=== PATIENT | female | born 1965 | race Caucasian/White ===

== ENCOUNTER 2019-05-16 16:43 | Emergency (ER) | payer OTHER, MEDICAID ==
[~2019-05-16] VITALS: Ht 170.2 cm; Wt 136.1 kg
[2019-05-16] MEDS ORDERED: CLONAZEPAM 0.50.5 M1 PO (17:00)
[2019-05-16] MEDS ORDERED: CARVEDILOL12.5 MG PO (17:00)
[2019-05-16] MEDS ORDERED: NEURONTIN 300300 M1 PO (17:00)
[2019-05-16] MEDS ORDERED: LAMICTAL5 MG PO (17:00)
[2019-05-16] MEDS ORDERED: LIPITOR10 MG PO (17:01)
[2019-05-16] MEDS ORDERED: PROTONIX 20 MG20 M1 PO (17:01)
[2019-05-16] MEDS ORDERED: NORVASC5 MG PO (17:01)
[2019-05-16] MEDS ORDERED: FLEXERIL PO (17:28)
[2019-05-16] MEDS ORDERED: PREDNISONE50 MG PO (17:28)
[2019-05-16] MEDS ORDERED: NORCO 5-325 TA1 EAC1 PO (17:28)
[2019-05-16 17:38] VITALS: BP 160/72
== END 2019-05-16 17:39 | disposition home or self-care (01) ==
LOC: M.ERS 16:43
DX: M54.5 Low back pain (principal); Z88.1 Allergy status to other antibiotic agents; Z88.0 Allergy status to penicillin; Z88.8 Allergy status to other drugs, medicaments and biological substances; Z98.51 Tubal ligation status; Z90.710 Acquired absence of both cervix and uterus; Z90.49 Acquired absence of other specified parts of digestive tract

== ENCOUNTER 2019-05-24 18:43 | Emergency (ER) | payer OTHER, MEDICAID ==
[~2019-05-24] VITALS: Ht 170.2 cm; Wt 149.7 kg
[~2019-05-24 18:43] MED LIST: CARVEDILOL12.5 MG PO; CLONAZEPAM 0.50.5 M1 PO; FLEXERIL PO; LAMOTRIGINE150 MG PO; LIPITOR10 MG PO; NEURONTIN 300300 M1 PO; NORCO 5-325 TA1 EAC1 PO; NORVASC5 MG PO; PREDNISONE50 MG PO; PROTONIX 20 MG20 M1 PO
[2019-05-24 19:31] LABS: URINE BILIRUBIN NEGATIVE (Negative); URINE BLOOD TRACE (Negative); URINE CLARITY CLEAR; URINE COLOR YELLOW; URINE GLUCOSE-RANDOM NEGATIVE (Negative); URINE KETONES NEGATIVE (Negative); URINE NITRITE-REFLEX NEGATIVE (Negative); URINE PROTEIN 1+ (Negative); URINE UROBILINOGEN 0.2 E.U./dl (0.2-1.0)
[2019-05-24 19:36] LABS: URINE LEUKOCYTES-REFLEX 3+ (Negative)
[2019-05-24 19:43] LABS: BACTERIA-REFLEX 1-9 Few /HPF (None Seen); SQUAMOUS >10 Many /LPF (0-3); URINE RBC 0-2 Rare /HPF (0-2); URINE WBC-REFLEX 6-15 Few /HPF (0-5)
[2019-05-24 19:44] LABS: CASTS None Seen /LPF (None Seen); CRYSTALS None Seen /LPF (None Seen)
[2019-05-24] MEDS ORDERED: ACETAMINOPHEN-1 EAC1 PO (20:09)
[2019-05-24] MEDS ORDERED: BACTRIM DS TAB1 EACH PO (20:10)
[2019-05-24] MEDS ORDERED: DIFLUCAN150 MG PO (20:10)
[2019-05-24 20:17] VITALS: BP 129/76
[2019-05-28] MEDS ORDERED: ROBAXIN500 MG PO (22:04)
[2019-06-02] MEDS ORDERED: GLUCOTROL5 MG PO (12:43)
[2019-06-02] MEDS ORDERED: GLUCOPHAGE XR500 MG PO (12:43)
[2019-06-02] MEDS ORDERED: CLONAZEPAM 0.50.5 M1 PO (13:48)
[2019-06-02] MEDS ORDERED: DIFLUCAN150 M1 PO (13:48)
[2019-06-02] MEDS ORDERED: NORVASC5 MG PO (13:48)
[2019-06-02] MEDS ORDERED: CARVEDILOL12.5 MG PO (13:48)
== END 2019-05-24 20:18 | disposition home or self-care (01) ==
LOC: M.ERS 18:43
PROVIDERS: Emergency Medicine
DX: N39.0 Urinary tract infection, site not specified (principal); M54.9 Dorsalgia, unspecified; Z90.49 Acquired absence of other specified parts of digestive tract; Z90.710 Acquired absence of both cervix and uterus; Z88.0 Allergy status to penicillin; Z88.1 Allergy status to other antibiotic agents; Z88.8 Allergy status to other drugs, medicaments and biological substances

== ENCOUNTER 2019-05-28 20:20 | Emergency (ER) | payer OTHER, MEDICAID ==
[~2019-05-28] VITALS: Ht 170.2 cm; Wt 136.1 kg
[~2019-05-28 20:20] MED LIST changes: +ACETAMINOPHEN-1 EAC1 PO; +BACTRIM DS TAB1 EACH PO; +DIFLUCAN150 MG PO
[2019-05-28 20:55] LABS: ABSOLUTE BASOPHILS 0.1 thou/uL (0.0-0.2); ABSOLUTE EOSINOPHILS 0.4 thou/uL (0.0-0.7); ABSOLUTE LYMPHOCYTES 2.1 thou/uL (0.8-5.3); ABSOLUTE MONOCYTES 0.5 thou/uL (0.0-1.2); ABSOLUTE NEUTROPHILS 4.1 thou/uL (1.6-8.1); BASOPHILS 0.9 %; HEMATOCRIT 41.3 % (37.0-47.0); HEMOGLOBIN 13.4 gm/dL (12.0-15.0); LYMPHOCYTES 29.1 %; MCH 28.4 pg (26.0-34.0); MCHC 32.5 g/dL (28.0-37.0); MCV 87.4 fL (80.0-100.0); MPV 7.7 fl. (7.2-11.1); NUCLEATED RBCS 0 /100WBC; PLATELET COUNT* 394 thou/uL (150-400); RBC 4.73 mil/uL (4.20-5.00); RDW-CV 14.2 % (10.5-14.5); WBC 7.3 thou/uL (4.0-11.0)
[2019-05-28 21:00] LABS: URINE CLARITY CLEAR; URINE COLOR YELLOW
[2019-05-28 21:01] LABS: URINE BILIRUBIN NEGATIVE (Negative); URINE BLOOD TRACE (Negative); URINE GLUCOSE-RANDOM NEGATIVE (Negative); URINE KETONES NEGATIVE (Negative); URINE LEUKOCYTES-REFLEX 1+ (Negative); URINE NITRITE-REFLEX NEGATIVE (Negative); URINE PROTEIN 2+ (Negative); URINE SPECIFIC GRAVITY >= 1.030 (1.005-1.030); URINE UROBILINOGEN 0.2 E.U./dl (0.2-1.0)
[2019-05-28 21:08] LABS: CREATININE 1.6 mg/dL (0.6-1.3)
[2019-05-28 21:12] LABS: ALBUMIN 3.3 g/dL (3.4-5.0); TOTAL BILIRUBIN 0.2 mg/dL (<0.1-1.0); TOTAL PROTEIN 7.2 g/dL (6.4-8.2)
[2019-05-28 21:34] LABS: SQUAMOUS >10 Many /LPF (0-3)
[2019-05-28 21:35] LABS: CRYSTALS None Seen /LPF (None Seen); MUCUS None Seen strn/LPF (None Seen); URINE RBC 0-2 Rare /HPF (0-2)
[2019-05-28 21:36] LABS: BACTERIA-REFLEX 1-9 Few /HPF (None Seen); HYALINE CASTS 0-3 Few /LPF (None Seen)
[2019-05-28] MEDS ORDERED: ROBAXIN500 MG PO ×2 (22:04)
[2019-05-28 22:33] VITALS: BP 155/79
== END 2019-05-28 22:34 | disposition home or self-care (01) ==
LOC: M.ERS 20:20
PROVIDERS: Nurse Practitioner Family
DX: N39.0 Urinary tract infection, site not specified (principal); G89.29 Other chronic pain; M54.5 Low back pain; Z90.49 Acquired absence of other specified parts of digestive tract; Z90.710 Acquired absence of both cervix and uterus; Z88.0 Allergy status to penicillin; Z88.1 Allergy status to other antibiotic agents; Z88.8 Allergy status to other drugs, medicaments and biological substances

== ENCOUNTER 2019-05-31 13:56 | Inpatient (IN) | payer OTHER, MEDICAID ==
[~2019-05-31] VITALS: Ht 170.2 cm; Wt 148.8 kg
--- NOTE | ~2019-05-31 | CON ---
[address] [address] CONSULTATION Name: RODY CHANDRA Room: [address] IN [facility]#: [id number] Admission: 05/31/19 Attend Phys: George Huddleston Discharge: Date of : 67 Report #: [id number] THIS REPORT FOR: //name// CC: MAXIMILIANO physician/PCP Khai Zimmer DATE OF SERVICE: 06/01/2019 CARDIOLOGY CONSULTATION HISTORY OF PRESENT ILLNESS: The patient is a 54-year-old female with a history of hypertension, hypercholesterolemia and reported prior myocardial infarction without intervention performed. For the last several days, she has noted dyspnea. Yesterday, she described left parasternal chest discomfort, which was different from prior ischemic pain. It is completely remitted today. The patient had an unremarkable EKG and cardiac enzymes on initial evaluation and she is pain free at the present time. Again, the discomfort described yesterday was different from that associated with prior ischemic episodes by her description. As noted above, there are number of risk factors for coronary artery disease include prior cigarette smoking, hypercholesterolemia, mild type 2 diabetes, hypertension and family history of premature coronary artery disease. SOCIAL HISTORY: Remarkable for prior cigarette smoking. She does function independently. FAMILY HISTORY: Remarkable for coronary artery disease in her grandfather. MEDICATIONS: Have included amlodipine, atorvastatin, carvedilol, clonazepam, doxepin, gabapentin, lamotrigine and pantoprazole. REVIEW OF SYSTEMS: Remarkable for the following positives. RESPIRATORY: She has noted cough with prior pneumonia and dyspnea on presentation. CARDIOVASCULAR: She describes atypical chest discomfort yesterday, different from prior ischemic pain. ENDOCRINE: She notes mild type 2 diabetes. GASTROINTESTINAL: She has a history of peptic ulcer disease. HEMATOLOGIC AND LYMPHATIC: She notes a history of prior bleeding. ALLERGIC AND IMMUNOLOGIC: She notes seasonal allergies. PSYCHIATRIC: She notes a history of depression and chronic anxiety, latter being particularly operative yesterday. MUSCULOSKELETAL: She notes mild chronic arthritic complaints. EYES: She wears glasses. Remainder [place] [address] CONSULTATION Name: RODY CHANDRA Room: [address]#: [id number] Admission: 05/31/19 Attend Phys: George Huddleston Discharge: Date of : 67 Report #: [id number] PHYSICAL EXAMINATION: GENERAL: Reveals an overweight, middle-aged female in no acute distress. VITAL SIGNS: Blood pressure 130/70, pulse rate 74, respirations 18 per minute. NECK: Jugular venous pressure is normal with carotids being 1+ to 2+. CHEST: Clear. CARDIAC: Reveals normal first and second heart sounds without rubs, murmurs or gallops. ABDOMEN: Obese and nontender. EXTREMITIES: Without edema with intact femoral, pedal and radial pulses. There are no deformity or arthritic changes. No petechiae or ecchymosis are noted. LABORATORY DATA: Electrocardiogram reveals sinus rhythm with minor nonspecific ST-T alterations. LABORATORY DATA: Remarkable for hemoglobin of 13.0, white blood cell count of 6400 with 345,000 platelets. Sodium 141, potassium 3.8, BUN 11, creatinine 1.6, troponin I less than 0.06. NT-BNP 778. Chest x-ray is reviewed and it demonstrates normal heart size without evidence for congestive heart failure. IMPRESSION: 1. Atypical chest pain. 2. Dyspnea on exertion with normal chest radiograph. 3. Hypertension. 4. Hypercholesterolemia. 5. History of mild type 2 diabetes. 6. Exogenous obesity. RECOMMENDATIONS: Given the atypical characterization of the pain and lack of enzymatic or electrocardiographic abnormalities, I would recommend continued conservative approach with focus on blood pressure and cholesterol. I would recommend proceed with an echocardiogram in a.m. to address the presence or absence of structural heart disease as the patient describes 3 prior myocardial infarctions, though the EKG demonstrates no evidence for prior infarct. Thank you for allowing us to see the patient in cardiovascular assessment. By: [id number] De Guzman MD, FACC /nt
[~2019-05-31 13:56] MED LIST changes: +ROBAXIN500 MG PO
[2019-05-31 13:58] VITALS: BP 131/81
[2019-05-31 14:16] LABS: ABSOLUTE BASOPHILS 0.1 thou/uL (0.0-0.2); ABSOLUTE EOSINOPHILS 0.3 thou/uL (0.0-0.7); ABSOLUTE MONOCYTES 0.6 thou/uL (0.0-1.2); ABSOLUTE NEUTROPHILS 3.5 thou/uL (1.6-8.1); HEMATOCRIT 39.6 % (37.0-47.0); LYMPHOCYTES 30.6 %; MCH 28.5 pg (26.0-34.0); MCHC 32.9 g/dL (28.0-37.0); MCV 86.6 fL (80.0-100.0); MONOCYTES 8.8 %; MPV 7.1 fl. (7.2-11.1); NUCLEATED RBCS 0 /100WBC; PLATELET COUNT* 345 thou/uL (150-400); POLYS 54.6 %; RBC 4.58 mil/uL (4.20-5.00); RDW-CV 14.2 % (10.5-14.5); WBC 6.4 thou/uL (4.0-11.0)
[2019-05-31 14:27] LABS: ANION GAP 6 mmol/L (7-16); BUN 11 mg/dL (7-18); CALCIUM 9.3 mg/dL (8.5-10.1); CHLORIDE 103 mmol/L (98-107); CO2 32 mmol/L (21-32); CREATININE 1.6 mg/dL (0.6-1.3); GLUCOSE 150 mg/dL (70-99); POTASSIUM 3.8 mmol/L (3.5-5.1); SODIUM 141 mmol/L (136-145)
[2019-05-31 14:29] LABS: APTT 24.5 Seconds (25.0-31.3)
[2019-05-31 14:39] LABS: ALBUMIN 3.2 g/dL (3.4-5.0); ALKALINE PHOSPHATASE 138 U/L (46-116); CK-MB MASS 0.7 ng/mL (<0.5-3.6); LIPASE 63 U/L (73-393); MAGNESIUM 1.7 mg/dL (1.8-2.4); NT-PRO BRAIN NAT PEPTIDE 778 pg/mL (<300); SGOT 16 U/L (15-37); SGPT 22 U/L (30-65); TOTAL BILIRUBIN 0.3 mg/dL (<0.1-1.0); TOTAL PROTEIN 6.9 g/dL (6.4-8.2); TROPONIN-I LEVEL <0.06 ng/mL (<0.06)
[2019-05-31 15:26] LABS: BE 2.6 mmol/L (-2 to +3); PCO2 49.3 mmHg (35.0-45.0); PO2 65.3 mmHg (75.0-100.0); pH 7.381 (7.340-7.450)
[2019-05-31 16:05] VITALS: BP 154/89
[2019-05-31 16:34] VITALS: BP 156/84
--- NOTE | 2019-05-31 16:47 | NUR ---
RECEIEVED REPORT FROM PARVEEN RN IN ER AT 1600 OF EXPECTED ADMISSION- DX: DYSPNEA, CHF EXACERBATION, HYPOXEMIA, CHEST PAIN- PT ARRIVED TO ROOM 230 VIA CART AT 1610, SBA TO BED WITH TRANSFER- MANAGER DRIVE PLACED ORDERED, TRACING SR- PT A&O X4- CONTINENT OF B/B- UP AD-EZ IN ROOM, STEADY GAIT NOTED- VS 97.8 20 156/84 94 94% ON 3L VIA NC- LCTA, DIMINISHED IN BASES; DYSPNEA NOTED ON EXERTION-REPORTED NON-PRODUCTIVE COUGH- ABD SOFT/OBESE/NON-TENDER, BS X4 QUADS- REPORTED LAST BM 05/30/19- IV NOTED TO LEFT AC INTACT AND SL-CARDIO CONSULTED ORDERED R/T CHEST PAIN- PT REPORTS CHEST/BACK PAIN 06/21- SKIN C/D/I- GLASSES NOTED INTACT- REPORTED TO NOT HAVE TEETH NOR DENTURES-PT ORIENTED TO ROOM- CALL LIGHT AND PERSONAL BELONGINGS WITH IN REACH- PT MAKES NEEDS KNOWN- ALL NEEDS MET AT THIS TIME-WCTM
[2019-05-31 20:00] VITALS: BP 142/66
[2019-05-31] MEDS ORDERED: DOXEPIN HCL100 MG PO (21:39)
[2019-06-01 00:41] VITALS: BP 133/76
[2019-06-01 04:00] VITALS: BP 116/61
[2019-06-01 07:00] VITALS: BP 132/67
--- NOTE | 2019-06-01 07:08 | NUR ---
ASSUMED PT CARE AT 1930. ASSESSMENT COMPLETED CHARTED. ABLE TO MAKE NEEDS KNOWN. C/O GENERALIZED ACHING AND GAVE PRN PAIN MEDICATION. UP AD EZ IN ROOM WITH O2 ON. PT SLEPT ON AND OFF ALL NIGHT. C/O ANXIETY YET SHE IS ON SCHEDULED ANXIETY MEDS. WILL CONTINUE TO MONITOR.
[2019-06-01 12:25] VITALS: BP 100/54
--- NOTE | 2019-06-01 17:24 | NUR ---
PATIENT INFORMED RN SHE WAS DIAGNOSED WITH DIABETES IN MARCH AT [facility]. PATIENT REPORTED WHILE IN THE HOSPITAL SHE WAS ON INSULIN AND THEN DISCHARGED ON METFORMIN WITH INSTRUCTIONS TO FOLLOW-UP WITH HER PCP. PATIENT REPORTS HER APPOINTMENT IS NOT UNTIL THE END OF JUNE. PATIENT HAS BEEN ON A REGULAR DIET WHILE IN HOSPITAL AND IS RECEIVING STEROIDS - BLOOD SUGAR IS HIGH. RN PAGED DR. BERUMEN AND SPOKE TO HIM. RN RECEIVED NEW MEDICATION ORDERS AND CHANGED DIET TO DIABETIC/CARB CONTROL.
[2019-06-01 20:00] VITALS: BP 123/66
[2019-06-02] VITALS: BP 112/56
[2019-06-02 04:00] VITALS: BP 118/61
[2019-06-02 07:15] VITALS: BP 111/64
--- NOTE | 2019-06-02 07:32 | NUR ---
ASSUMED PT CARE AT 1930. ASSESSMENT COMPLETED CHARTED. ABLE TO MAKE NEEDS KNOWN. UP AD EZ, NO C/O PAIN MOST OF THE NIGHT EXCEPT FOR THIS MORNING HAVING BACK PAIN AND GAVE PRN PAIN MEDICATIONS. PT RESTING IN BED AT THIS TIME. WILL CONTINUE TO MONITOR.
--- NOTE | 2019-06-02 07:57 | NUR ---
INITAL ASSESSMENT COMPLETED CHARTED. VSS. PT DENIES PAIN AT THIS TIME.TRACING SR ON MONITOR. PT DENIES CP, N/V/D, SOA. HOURLY ROUNDING IN PLACE FOR PT SAFETY. CLWR.
[2019-06-02 12:11] VITALS: BP 104/56
[2019-06-02] MEDS ORDERED: GLUCOPHAGE XR500 MG PO ×2 (12:43)
[2019-06-02] MEDS ORDERED: GLUCOTROL5 MG PO ×2 (12:43)
[2019-06-02 13:41] LABS: URINE BILIRUBIN NEGATIVE (Negative); URINE BLOOD NEGATIVE (Negative); URINE CLARITY CLEAR; URINE COLOR YELLOW; URINE GLUCOSE-RANDOM NEGATIVE (Negative); URINE KETONES NEGATIVE (Negative); URINE LEUKOCYTES-REFLEX NEGATIVE (Negative); URINE NITRITE-REFLEX NEGATIVE (Negative); URINE PROTEIN TRACE (Negative); URINE SPECIFIC GRAVITY 1.015 (1.005-1.030); URINE UROBILINOGEN 0.2 E.U./dl (0.2-1.0)
[2019-06-02] MEDS ORDERED: DIFLUCAN150 M1 PO ×2 (13:48)
[2019-06-02] MEDS ORDERED: NORVASC5 MG PO ×2 (13:48)
[2019-06-02] MEDS ORDERED: CLONAZEPAM 0.50.5 M1 PO ×2 (13:48)
[2019-06-02] MEDS ORDERED: CARVEDILOL12.5 MG PO ×2 (13:48)
--- NOTE | 2019-06-02 13:57 | NUR ---
MET WITH PT AND HER DTR/NEREIDA TO DISCUSS HOME SITUATION/DC PLANNING. PT STATES SHE IS LIVING WITH HER DTR AND BERT IN [facility] IN [place] (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 PT IS INDEPENDENT, USES NO EQUIPMENT. SHE IS [place] BUT [place] AND STATES SHE HAS TO GO TO PHARMACY [place] GET MEDS FILL[place] FOR FREE. DTR STATED THEIR CAR ISN'T RUNNING BUT THEY ARE 'WORKING ON IT.' PT REPORTS SHE HAS HOME MEDS BUT WORRIED IF GETS NEW SCRIPTS HOW THEY WILL GET THEM FILLED. WILL FOLLOW
--- NOTE | 2019-06-02 14:00 | NUR ---
Nutrition: Consult received for "OBE." Pt admitted with dyspnea, CHF exac. Wt: 328#. DM DX in April 2019. BG 300s, steroids just d/c'd. Alb 3.2, BUN 11, cr 1.6. CHO controlled diet. Pt declined DM or nutrition educ today. She stated she has a stck of papers they gave her at DX in [place] in April. She stated that she is living in a hotel right now and doesn't know if she'll end up back in [place] or [place]. Encouraged her to call her insurance and go to [facility] once she is more on her feet. She stated she would - RD doubtful. Denied any questions/concerns today. Consider Mild risk. Recommend outpatient counseling and SW resources.
[2019-06-02 14:13] VITALS: BP 104/56
--- NOTE | 2019-06-03 16:04 | 2DMMODE ---
[place] [address] 2 D/M-MODE ECHOCARDIOGRAM Name: RODY CHANDRA Room: [address]#: [id number] Admission: 05/31/19 Attend Phys: Khai Zimmer Discharge: 06/02/19 Date of : 67 Date of Service: 06/03/19 1603 Report #: [id number] THIS REPORT FOR: //name// APPROVED REPORT Study performed: 06/02/2019 10:56:28 EXAM: Comprehensive 2D, Doppler, and color-flow Echocardiogram Patient Location: In-Patient Room #: 230 BSA: 2.15 HR: 82 bpm BP: 111/64 mmHg Other Information Study Quality: Good Indications Congestive Heart Failure 2D Dimensions IVSd: 13.32 (7-11mm) LVOT Diam: 20.88 (18-24mm) LVDd: 47.97 mm PWd: 11.31 (7-11mm) Ascending Ao: 33.55 (22-36mm) LVDs: 31.96 (25-40mm) Aortic Root: 31.40 mm Volumes Left Atrial Volume (Systole) LA ESV Index: 19.90 mL/m2 Aortic Valve AoV Peak Angel.: 1.82 m/s AO Peak Gr.: 13.27 mmHg LVOT Max P.30 mmHg AO Mean Gr.: 7.03 mmHg LVOT Mean P.69 mmHg LVOT Max V: 0.91 m/s AO V2 VTI: 33.82 cm LVOT Mean V: 0.59 m/s PAUL (VTI): 1.97 cm2 LVOT V1 VTI: 19.48 cm Mitral Valve E/A Ratio: 0.76 MV Decel. Time: 323.22 ms MV E Max Angel.: 0.86 m/s MV PHT: 93.73 [place] [address] 2 D/M-MODE ECHOCARDIOGRAM Name: RODY CHANDRA Room: [address]#: [id number] Admission: 05/31/19 Attend Phys: Khai Zimmer Discharge: 06/02/19 Date of : 67 Date of Service: 06/03/19 1603 Report #: [id number] MVA (PHT): 2.35 cm2 TDI E/Lateral E': 10.75 E/Medial E': 14.33 Medial E' Angel.: 0.06 m/s Lateral E' Angel.: 0.08 m/s Pulmonary Valve PV Peak Angel.: 1.23 m/s PV Peak Gr.: 6.07 mmHg Left Ventricle The left ventricle is normal size. There is normal LV segmental wall motion. There is normal left ventricular wall thickness. Left ventricular systolic function is normal. LVEF is 55-60%. Grade I - abnormal relaxation pattern. Right Ventricle The right ventricle is normal size. The right ventricular systolic function is normal. Atria The left atrium size is normal. The right atrium size is normal. Aortic Valve The aortic valve is normal in structure. Mild aortic regurgitation. There is no aortic valvular stenosis. Mitral Valve The mitral valve is normal in structure. There is no mitral valve regurgitation noted. No evidence of mitral valve stenosis. Tricuspid Valve The tricuspid valve is normal in structure. There is no tricuspid valve regurgitation noted. Pulmonic Valve The pulmonary valve is normal in structure. There is no pulmonic valvular regurgitation. Great Vessels The aortic root is normal in size. IVC is normal in size and collapses >50% with inspiration. Pericardium There is no pericardial [place] [address] 2 D/M-MODE ECHOCARDIOGRAM Name: RODY CHANDRA Room: [address]#: [id number] Admission: 05/31/19 Attend Phys: Khai Zimmer Discharge: 06/02/19 Date of : 67 Date of Service: 06/03/19 1603 Report #: [id number] <Conclusion> The left ventricle is normal size. There is normal left ventricular wall thickness. Left ventricular systolic function is normal. LVEF is 55-60%. Grade I - abnormal relaxation pattern. Mild aortic regurgitation. IVC is normal in size and collapses >50% with inspiration. <ELECTRONICALLY SIGNED> By: Artem Null MD, FACC 06/03/19 1603 1603 1603 Artem Null MD, FACC /INF
== END 2019-06-02 14:55 | disposition home or self-care (01) | DRG 291 ==
LOC: M.ERS 13:56 → M.TBA-ER 15:24 → M.2W 15:24
PROVIDERS: Family Medicine; ADMIT Internal Medicine
DX: I11.0 Hypertensive heart disease with heart failure (principal); J96.20 Acute and chronic respiratory failure, unspecified whether with hypoxia or hypercapnia; N39.0 Urinary tract infection, site not specified; Z68.43 Body mass index [BMI] 50.0-59.9, adult; I50.43 Acute on chronic combined systolic (congestive) and diastolic (congestive) heart failure; E78.00 Pure hypercholesterolemia, unspecified; E11.9 Type 2 diabetes mellitus without complications; G89.29 Other chronic pain; E78.5 Hyperlipidemia, unspecified; K21.9 Gastro-esophageal reflux disease without esophagitis; E66.09 Other obesity due to excess calories; B37.3 Candidiasis of vulva and vagina; M54.9 Dorsalgia, unspecified; F41.9 Anxiety disorder, unspecified; Z88.1 Allergy status to other antibiotic agents; Z88.0 Allergy status to penicillin; Z88.8 Allergy status to other drugs, medicaments and biological substances; Z79.899 Other long term (current) drug therapy; Z90.710 Acquired absence of both cervix and uterus; Z90.49 Acquired absence of other specified parts of digestive tract; Z87.891 Personal history of nicotine dependence; I25.2 Old myocardial infarction; Z82.49 Family history of ischemic heart disease and other diseases of the circulatory system

== ENCOUNTER 2020-04-17 11:53 | Emergency (ER) | payer OTHER, MEDICAID ==
[~2020-04-17] VITALS: Ht 170.2 cm; Wt 123.4 kg
[~2020-04-17 11:53] MED LIST changes: +DIFLUCAN150 M1 PO; +DOXEPIN HCL100 MG PO; +GLUCOPHAGE XR500 MG PO; +GLUCOTROL5 MG PO
[2020-04-17] MEDS ORDERED: FAMOTIDINE 10 M10 MG PO (12:13)
[2020-04-17] MEDS ORDERED: ZPAK PO (12:36)
[2020-04-17 13:10] VITALS: BP 114/72
[2020-04-17] MEDS ORDERED: LIDOCAINE VISC100 ML SW&SWALLOW ×2 (13:12)
== END 2020-04-17 13:12 | disposition home or self-care (01) ==
LOC: M.ERS 11:53
DX: J98.8 Other specified respiratory disorders (principal); B33.8 Other specified viral diseases; J02.9 Acute pharyngitis, unspecified; I50.9 Heart failure, unspecified; F31.9 Bipolar disorder, unspecified; F41.9 Anxiety disorder, unspecified; Z90.710 Acquired absence of both cervix and uterus

== ENCOUNTER 2020-06-22 18:10 | Emergency (ER) | payer OTHER, MEDICAID ==
[~2020-06-22] VITALS: Ht 170.2 cm; Wt 127.0 kg
[~2020-06-22 18:10] MED LIST changes: +FAMOTIDINE 10 M10 MG PO; +LIDOCAINE VISC100 ML SW&SWALLOW; +ZPAK PO
[2020-06-22 18:29] LABS: URINE BILIRUBIN NEGATIVE (Negative); URINE BLOOD NEGATIVE (Negative); URINE CLARITY CLEAR; URINE COLOR YELLOW; URINE GLUCOSE-RANDOM NEGATIVE (Negative); URINE KETONES NEGATIVE (Negative); URINE LEUKOCYTES-REFLEX 1+ (Negative); URINE NITRITE-REFLEX NEGATIVE (Negative); URINE PROTEIN 1+ (Negative); URINE UROBILINOGEN 0.2 E.U./dl (0.2-1.0)
[2020-06-22 18:31] LABS: ABSOLUTE BASOPHILS 0.1 thou/uL (0.0-0.2); ABSOLUTE EOSINOPHILS 0.3 thou/uL (0.0-0.7); ABSOLUTE MONOCYTES 0.5 thou/uL (0.0-1.2); ABSOLUTE NEUTROPHILS 5.5 thou/uL (1.6-8.1); BASOPHILS 0.9 %; EOSINOPHILS 3.7 %; HEMATOCRIT 35.7 % (37.0-47.0); HEMOGLOBIN 11.8 gm/dL (12.0-15.0); LYMPHOCYTES 23.8 %; MCH 29.1 pg (26.0-34.0); MCV 88.1 fL (80.0-100.0); MONOCYTES 5.5 %; MPV 6.9 fl. (7.2-11.1); NUCLEATED RBCS 0 /100WBC; PLATELET COUNT* 353 thou/uL (150-400); POLYS 66.1 %; RBC 4.05 mil/uL (4.20-5.00); RDW-CV 15.8 % (10.5-14.5); WBC 8.3 thou/uL (4.0-11.0)
[2020-06-22 18:39] LABS: CREATININE 1.5 mg/dL (0.6-1.3); POTASSIUM 4.5 mmol/L (3.5-5.1)
[2020-06-22 18:40] LABS: SQUAMOUS 4-10 Moderate /LPF (0-3); URINE RBC 0-2 Rare /HPF (0-2); URINE WBC-REFLEX 0-5 Rare /HPF (0-5)
[2020-06-22 18:41] LABS: BACTERIA-REFLEX 1-9 Few /HPF (None Seen); CASTS None Seen /LPF (None Seen); CRYSTALS None Seen /LPF (None Seen)
[2020-06-22 18:45] LABS: ALBUMIN 3.5 g/dL (3.4-5.0); TOTAL BILIRUBIN 0.2 mg/dL (<0.1-1.0); TOTAL PROTEIN 7.4 g/dL (6.4-8.2)
[2020-06-22] MEDS ORDERED: FLAGYL500 M1 PO (20:26)
[2020-06-22] MEDS ORDERED: ONDANSETRON HCL4 M2 PO (20:26)
[2020-06-22] MEDS ORDERED: BENTYL 20 MG TA20 M1 PO (20:26)
[2020-06-22 20:46] VITALS: BP 137/70
--- NOTE | 2020-06-23 10:26 | EKG ---
[place] [address] ELECTROCARDIOGRAM REPORT Name: RODY CHANDRA Room: [facility]#: [id number] Admission: 06/22/20 Attend Phys: Discharge: 06/22/20 Date of : 67 Date of Service: 06/22/201820 Report #: [id number] THIS REPORT FOR: //name// [facility] ED Test Date: 2020-06-22 Test Time: 18:21:02 Pat Name: RODY CHANDRA Department: Room: Gender: F Bobbin Sorter: [facility] : 1965 Requested By: Linda Mcguire Order Number: [id number] MD: Sridhar Vaca Measurements Intervals [place] Rate: 73 P: 61 DC: 193 QRS: 56 QRSD: 110 T: 52 QT: 407 QTc: 449 Interpretive Statements Sinus rhythm No previous ECG available for comparison Electronically Signed On 06-23-2020 10:26:33 CDT by Sridhar Vaca [email or web address] <ELECTRONICALLY SIGNED> By: Sridhar Vaca MD, [facility] 06/23/20 1026 20 20 Sridhar Vaca MD, FACC /EPI
== END 2020-06-22 20:47 | disposition home or self-care (01) ==
LOC: M.ERS 18:10
PROVIDERS: Nurse Practitioner Family
DX: R10.33 Periumbilical pain (principal); I50.9 Heart failure, unspecified; Z88.1 Allergy status to other antibiotic agents; Z88.0 Allergy status to penicillin; Z88.8 Allergy status to other drugs, medicaments and biological substances; Z98.51 Tubal ligation status; Z90.710 Acquired absence of both cervix and uterus; Z90.49 Acquired absence of other specified parts of digestive tract

== ENCOUNTER 2020-06-29 13:07 | Emergency (ER) | payer OTHER, MEDICAID ==
[~2020-06-29] VITALS: Ht 170.2 cm; Wt 127.0 kg
[~2020-06-29 13:07] MED LIST changes: +BENTYL 20 MG TA20 M1 PO; +FLAGYL500 M1 PO; +ONDANSETRON HCL4 M2 PO
[2020-06-29] MEDS ORDERED: IBUPROFEN 800800 M1 PO (15:25)
[2020-06-29] MEDS ORDERED: NORCO 5-325 TA1 EAC2 PO (15:25)
[2020-06-29 15:36] VITALS: BP 167/74
== END 2020-06-29 15:36 | disposition home or self-care (01) ==
LOC: M.ERS 13:07
DX: M17.12 Unilateral primary osteoarthritis, left knee (principal); I50.9 Heart failure, unspecified; F31.9 Bipolar disorder, unspecified; F41.9 Anxiety disorder, unspecified; Z98.51 Tubal ligation status; Z90.710 Acquired absence of both cervix and uterus; Z90.49 Acquired absence of other specified parts of digestive tract; Z88.0 Allergy status to penicillin; Z88.1 Allergy status to other antibiotic agents

== ENCOUNTER → 2020-08-18 | Outpatient (CLI) | payer OTHER, MEDICAID ==
[~2020-08-18] MED LIST changes: +AMBIEN 10 MG TA10 MG PO; +CELEXA 20 MG TA20 MG PO; +ELIQUIS5 MG PO; +HYDROXYZINE HCL25 M2 PO; +IBUPROFEN 800800 M1 PO; +LAMICTAL XR200 MG PO; +LEVOFLOXACIN500 MG PO; +LINEZOLID600 MG PO; +MIRAPEX0.5 MG PO; +NEURONTIN600 MG PO; +NORCO 5-325 TA1 EAC2 PO; +NORVASC5 M1 PO; +OMEPRAZOLE40 MG PO; +OXYCODONE HCL 55 MG PO; +SINGULAIR 10 MG10 M1 PO
[2020-08-18 14:32] LABS: ABSOLUTE BASOPHILS 0.1 thou/uL (0.0-0.2); ABSOLUTE EOSINOPHILS 0.3 thou/uL (0.0-0.7); ABSOLUTE LYMPHOCYTES 1.7 thou/uL (0.8-5.3); ABSOLUTE MONOCYTES 0.3 thou/uL (0.0-1.2); ABSOLUTE NEUTROPHILS 4.2 thou/uL (1.6-8.1); BASOPHILS 0.8 %; EOSINOPHILS 5.1 %; HEMATOCRIT 38.2 % (37.0-47.0); HEMOGLOBIN 12.5 gm/dL (12.0-15.0); LYMPHOCYTES 26.2 %; MCH 28.2 pg (26.0-34.0); MCHC 32.7 g/dL (28.0-37.0); MCV 86.2 fL (80.0-100.0); MONOCYTES 5.2 %; MPV 6.6 fl. (7.2-11.1); NUCLEATED RBCS 0 /100WBC; PLATELET COUNT* 315 thou/uL (150-400); POLYS 62.7 %; RBC 4.43 mil/uL (4.20-5.00); RDW-CV 15.6 % (10.5-14.5); WBC 6.6 thou/uL (4.0-11.0)
[2020-08-18 14:43] LABS: ALBUMIN 3.5 g/dL (3.4-5.0); CALCIUM 9.8 mg/dL (8.5-10.1); CREATININE 1.8 mg/dL (0.6-1.3); POTASSIUM 4.8 mmol/L (3.5-5.1); TOTAL BILIRUBIN 0.3 mg/dL (<0.1-1.0); TOTAL PROTEIN 7.3 g/dL (6.4-8.2)
[2020-08-18 15:54] LABS: ESR (SEDRATE) 20 mm/hr (0-30)
[2020-08-19 02:06] LABS: GLYCOHEMOGLOBIN (HGB A1C) 5.8 % (4.8-5.6)
== END ==
LOC: M.LAB 08-17 07:39
PROVIDERS: ATTEND Orthopaedic Surgery
DX: Z01.812 Encounter for preprocedural laboratory examination (principal); Z20.828 Contact with and (suspected) exposure to other viral communicable diseases; M17.11 Unilateral primary osteoarthritis, right knee

== ENCOUNTER 2020-08-24 12:16 | Inpatient (IN) | payer OTHER, MEDICAID ==
[~2020-08-24] VITALS: Ht 170.2 cm; Wt 127.0 kg
[~2020-08-24 12:16] MED LIST changes: -ELIQUIS5 MG PO; -LEVOFLOXACIN500 MG PO; -LINEZOLID600 MG PO; -OXYCODONE HCL 55 MG PO
[2020-08-24 13:00] VITALS: BP 145/77
[2020-08-24 21:21] VITALS: BP 101/58
[2020-08-25] VITALS: BP 111/65
[2020-08-25 04:05] VITALS: BP 123/70
[2020-08-25 04:52] LABS: HEMATOCRIT 34.8 % (37.0-47.0); HEMOGLOBIN 11.2 gm/dL (12.0-15.0)
[2020-08-25 08:10] VITALS: BP 122/87
[2020-08-25] MEDS ORDERED: ELIQUIS5 MG PO (08:57)
[2020-08-25] MEDS ORDERED: OXYCODONE HCL 55 MG PO (08:57)
[2020-08-25 11:38] VITALS: BP 122/87
[2020-08-25 12:37] VITALS: BP 110/59
[2020-08-25 14:39] LABS: CALCIUM 8.6 mg/dL (8.5-10.1); CREATININE 1.8 mg/dL (0.6-1.3); MAGNESIUM 1.9 mg/dL (1.8-2.4); POTASSIUM 4.8 mmol/L (3.5-5.1)
[2020-08-25 14:50] LABS: BE 1.3 mmol/L (-2 to +3); PO2 60.4 mmHg (75.0-100.0); pH 7.307 (7.340-7.450)
[2020-08-25 14:52] LABS: PCO2 58.6 mmHg (35.0-45.0)
[2020-08-25 20:00] VITALS: BP 137/61
[2020-08-26 04:02] LABS: HEMATOCRIT 31.4 % (37.0-47.0)
[2020-08-26 08:00] VITALS: BP 115/69
[2020-08-26 11:18] VITALS: BP 107/61
[2020-08-26 16:46] VITALS: BP 115/61
[2020-08-26 22:15] VITALS: BP 112/55
[2020-08-27] VITALS (7 sets, daily range): BP systolic 94–110; BP diastolic 45–56
[2020-08-27 09:08] LABS: ABSOLUTE BASOPHILS 0.1 thou/uL (0.0-0.2); ABSOLUTE EOSINOPHILS 0.5 thou/uL (0.0-0.7); ABSOLUTE LYMPHOCYTES 1.8 thou/uL (0.8-5.3); ABSOLUTE MONOCYTES 1.2 thou/uL (0.0-1.2); ABSOLUTE NEUTROPHILS 7.9 thou/uL (1.6-8.1); BASOPHILS 0.4 %; EOSINOPHILS 4.4 %; HEMATOCRIT 30.5 % (37.0-47.0); HEMOGLOBIN 9.6 gm/dL (12.0-15.0); LYMPHOCYTES 15.6 %; MCH 27.1 pg (26.0-34.0); MCHC 31.6 g/dL (28.0-37.0); MCV 85.9 fL (80.0-100.0); MONOCYTES 10.2 %; MPV 7.2 fl. (7.2-11.1); NUCLEATED RBCS 0 /100WBC; PLATELET COUNT* 317 thou/uL (150-400); POLYS 69.4 %; RBC 3.55 mil/uL (4.20-5.00); RDW-CV 15.2 % (10.5-14.5); WBC 11.4 thou/uL (4.0-11.0)
[2020-08-27 09:21] LABS: ALBUMIN 2.9 g/dL (3.4-5.0); MAGNESIUM 1.8 mg/dL (1.8-2.4); POTASSIUM 4.4 mmol/L (3.5-5.1); TOTAL BILIRUBIN 0.4 mg/dL (<0.1-1.0)
[2020-08-28] VITALS: BP 120/60
[2020-08-28 04:00] VITALS: BP 133/70
[2020-08-28 04:55] LABS: HEMATOCRIT 28.7 % (37.0-47.0); HEMOGLOBIN 9.2 gm/dL (12.0-15.0); MCH 27.8 pg (26.0-34.0); MCHC 32.1 g/dL (28.0-37.0); MCV 86.5 fL (80.0-100.0); MPV 7.4 fl. (7.2-11.1); RBC 3.32 mil/uL (4.20-5.00); WBC 11.6 thou/uL (4.0-11.0)
[2020-08-28 05:06] LABS: CALCIUM 9.4 mg/dL (8.5-10.1); CREATININE 1.7 mg/dL (0.6-1.3); POTASSIUM 4.7 mmol/L (3.5-5.1)
[2020-08-28 08:00] VITALS: BP 113/67
[2020-08-28 12:00] VITALS: BP 131/70
[2020-08-28 16:00] VITALS: BP 113/57
[2020-08-28 19:50] VITALS: BP 118/56
[2020-08-29] VITALS: BP 111/53
[2020-08-29 04:30] VITALS: BP 109/62
[2020-08-29 08:00] VITALS: BP 127/72
[2020-08-29 11:30] VITALS: BP 120/70
[2020-08-29 16:00] VITALS: BP 119/58
[2020-08-29 20:10] VITALS: BP 124/60
[2020-08-30] VITALS (7 sets, daily range): BP systolic 110–140; BP diastolic 45–76
--- NOTE | 2020-08-30 13:09 | 2DMMODE ---
[place] [address] 2 D/M-MODE ECHOCARDIOGRAM Name: RODY CHANDRA Room: [address] IN [place].#: [id number] Admission: 08/26/20 Attend Phys: Khai Zimmer Discharge: Date of : 67 Date of Service: 08/30/20 1309 Report #: [id number] THIS REPORT FOR: cc: FAM - No family physician/PCP FAM - No family physician/PCP Sridhar Vaca MD [facility] ~ APPROVED REPORT Study performed: 08/30/2020 11:20:06 EXAM: Comprehensive 2D, Doppler, and color-flow Echocardiogram Patient Location: Bedside BSA: 2.45 HR: 63 bpm BP: 125/58 mmHg Other Information Study Quality: Fair Indications Congestive Heart Failure 2D Dimensions IVSd: 13.96 (7-11mm) LVOT Diam: 22.87 (18-24mm) LVDd: 48.44 mm PWd: 11.95 (7-11mm) Ascending Ao: 37.03 (22-36mm) LVDs: 34.00 (25-40mm) Aortic Root: 33.28 mm Volumes Left Atrial Volume (Systole) LA ESV Index: 30.40 mL/m2 Aortic Valve AoV Peak Angel.: 1.15 m/s AO Peak Gr.: 5.28 mmHg LVOT Max P.47 mmHg AO Mean Gr.: 3.21 mmHg LVOT Mean P.71 mmHg LVOT Max V: 0.93 m/s AO V2 VTI: 27.72 cm LVOT Mean V: 0.60 m/s PAUL (VTI): 3.43 cm2 LVOT V1 VTI: 23.12 cm Mitral Valve E/A Ratio: 2.59 [place] [address] 2 D/M-MODE ECHOCARDIOGRAM Name: RODY CHANDRA Room: [address]#: [id number] Admission: 08/26/20 Attend Phys: Khai Zimmer Discharge: Date of : 67 Date of Service: 08/30/20 1309 Report #: [id number] MV Decel. Time: 281.78 ms MV E Max Angel.: 0.95 m/s MV PHT: 81.72 ms MVA (PHT): 2.69 cm2 TDI E/Lateral E': 7.92 E/Medial E': 8.64 Medial E' Angel.: 0.11 m/s Lateral E' Angel.: 0.12 m/s Pulmonary Valve PV Peak Angel.: 1.06 m/s PV Peak Gr.: 4.50 mmHg Tricuspid Valve TR Peak Gr.: 13.90 mmHg Left Ventricle The left ventricle is normal size. There is normal LV segmental wall motion. Mild concentric left ventricular hypertrophy. Left ventricular systolic function is borderline. LVEF is 50-55%. Right Ventricle The right ventricle is normal size. The right ventricular systolic function is normal. Atria Left atrium is mildly dilated. Interatrial septum not well visualized. The right atrium size is normal. Aortic Valve The Aortic valve is sclerotic. Trace aortic regurgitation. There is no aortic valvular stenosis. Mitral Valve The mitral valve is normal in structure. Trace mitral regurgitation. No evidence of mitral valve stenosis. Tricuspid Valve The tricuspid valve is normal in structure. Trace tricuspid regurgitation. Pulmonic Valve The pulmonary valve is normal in structure. There is no pulmonic valvular regurgitation[place] [address] 2 D/M-MODE ECHOCARDIOGRAM Name: RODY CHANDRA Room: [address]#: [id number] Admission: 08/26/20 Attend Phys: Khai Zimmer Discharge: Date of : 67 Date of Service: 08/30/20 1309 Report #: [id number] The aortic root is normal in size. IVC is dilated. Pericardium There is no pericardial effusion. <Conclusion> Mild concentric left ventricular hypertrophy. LVEF is 50-55%. Left atrium is mildly dilated. <ELECTRONICALLY SIGNED> By: Sridhar Vaca MD, FACC 08/30/20 1309 08 08 Sridhar Vaca MD, FAC /INF
[2020-08-31 04:00] VITALS: BP 142/75
[2020-08-31 05:16] LABS: HEMATOCRIT 29.8 % (37.0-47.0); HEMOGLOBIN 9.5 gm/dL (12.0-15.0); MCH 27.2 pg (26.0-34.0); MCHC 31.7 g/dL (28.0-37.0); MCV 85.9 fL (80.0-100.0); MPV 7.2 fl. (7.2-11.1); RBC 3.47 mil/uL (4.20-5.00); RDW-CV 15.2 % (10.5-14.5); WBC 8.7 thou/uL (4.0-11.0)
[2020-08-31 05:31] LABS: ALBUMIN 2.6 g/dL (3.4-5.0); CREATININE 1.8 mg/dL (0.6-1.3); POTASSIUM 4.6 mmol/L (3.5-5.1); TOTAL BILIRUBIN 0.4 mg/dL (<0.1-1.0); TOTAL PROTEIN 6.7 g/dL (6.4-8.2)
[2020-08-31 08:00] VITALS: BP 122/62
[2020-08-31] MEDS ORDERED: LINEZOLID600 MG PO (08:54)
[2020-08-31] MEDS ORDERED: LEVOFLOXACIN500 MG PO (08:54)
[2020-08-31 11:27] VITALS: BP 122/87
[2020-08-31 11:30] VITALS: BP 106/55
[2020-08-31 12:02] VITALS: BP 122/87
--- NOTE | 2020-09-01 22:08 | OP ---
[facility] [place] [address] OPERATIVE REPORT Name: RODY CHANDRA Room: [address]#: [id number] Admission: 08/26/20 Attend Phys: George Huddleston Discharge: 08/31/20 Date of : 67 Report #: [id number] THIS REPORT FOR: //name// cc: MAXIMILIANO Hernandez family physician/PCP MAXIMILIANO Hernandez family physician/PCP ~ CC: [facility] physician/PCP Quique Zimmer DATE OF SERVICE: 08/24/2020 PREOPERATIVE DIAGNOSIS: Left knee degenerative joint disease, advanced. POSTOPERATIVE DIAGNOSIS: Left knee degenerative joint disease, advanced. PROCEDURE: Left total knee arthroplasty. SURGEON: Quique Hayes DO PRINTING PRESSMAN: Juan Jose Adamson DO ANESTHESIA: General. ANTIBIOTICS: Vancomycin. IV FLUIDS: 1000 lactated Ringer's. ESTIMATED BLOOD LOSS: 100 mL. COMPLICATIONS: None. SPECIMENS: None. DRAINS: None. TOURNIQUET TIME: 54 minutes at 290 mmHg. CONDITION OF PATIENT: Stable to PACU. IMPLANTS: Ignacio Persona knee, size 8 standard CR cemented femur, F cemented tibia, 32 mm cemented all polyethylene patella, 12 mm medial congruent polyethylene. INDICATIONS FOR PROCEDURE: The patient presented to [facility] for left total knee arthroplasty. She had tried and failed conservative management, even had arthroscopic knee surgery in the past by Dr. Royal at . [facility] [place] [address] OPERATIVE REPORT Name: RODY CHANDRA Room: [address] IN [place]#: [id number] Admission: 08/26/20 Attend Phys: George Huddleston Discharge: 08/31/20 Date of : 67 Report #: [id number] We have gone over with her all of her treatment options. She ultimately wished to have knee replacement. I have gone over the risks and complications of surgery, not only in clinic, but today as well. She acknowledged, accepted and gave consent to proceed tonight questions. DESCRIPTION OF PROCEDURE: I marked the left lower extremity in the presence of operative team members. Everyone agreed this was correct. She was taken back to the operative suite, placed on the table in supine position, well-padded and secured. General anesthetic administered. A well-padded tourniquet was placed proximally on the left lower extremity, which was then sterilely prepped and draped in standard fashion. Timeout was performed indicating correct patient, procedure, site, antibiotics and that implants were present and sterile. All team members agreed. Standard incision midline longitudinal went up with tourniquet at 290 mmHg confirmed the vancomycin had been fully given and then scalpel through skin, full thickness flaps down secondary scalpel was used to perform medial parapatellar arthrotomy with medial sleeve and retractors placed to protect collaterals everted the patella with the knee into flexion, drilled into the femur in the appropriate position within the intramedullary guide lissa, parallel the condyles then the block into position and did take an extra 1 due to her preoperative leg and her extension confirmed with andrae also exposed the neck cut, removed the block and bone saw and the excess bone sized the distal femur to an 8, placed the block in appropriate amount of external rotation based off Ramon's line and epicondylar axis. An andrae wing checked, oscillating saw was used to perform cut after pinned down in position, we removed the block or any excess bone and turned attention to the tibia. A 10 off the high side. Appropriate slope and varus valgus with the external guide. With that in place, we then pinned checked with andrae monahan third pin placed was also consulted to perform neck cut excess bone removed. Spacer block was placed. Full extension, excellent gapping between the flexion and extension, excellent gapping with varus, valgus and intact collaterals with symmetric gaps. We then sized our tibia with a left shift and placed the trial in appropriate position within the position, then placed our femur in a lateralized position, this was excellent. The trial 10 poly little bit of play in regards to varus and valgus. We then went to a 12 and excellent stability at this point in time in all planes and excellent rotation of the components with flexion and extension with excellent stability in flexion. A freehand cutter patella only cutting what would be replaced by the poly size 32, drilled in a medialized position, trial poly placed. We then took the knee through range of motion with all trial components in place, full range of motion in flexion and extension, excellent stability throughout all planes, especially varus valgus and mid flexion. We then removed trial components after drilling for the patella and punching for the tibia. Final component thrown on to the back side. She was on the table after confirming the implants with timeout holding off on the polyethylene until after cement was hardened, we then irrigated the bone with pulsatile lavage to clean, dry surface. Cement was mixed per standard on the back table and then placed on the tibia. The backside of the tibial component [address] [address] OPERATIVE REPORT Name: RODY CHANDRA Room: [address]#: [id number] Admission: 08/26/20 Attend Phys: George Huddleston Discharge: 08/31/20 Date of : 67 Report #: [id number] was implanted into position. Excess cement removed. Same was performed for the femur as well as the patella. Patellar clamp. Trial 12 poly placed and held the knee in extension while the cement hardened. Once the cement was fully hardened, we then removed the trial after we confirmed this would be appropriate. We checked for any excess cement removed appropriately irrigated block performed a bur and the edges to control bleeding, denervated the patella. The final 12 polyethylene thrown and engaged appropriately after confirming its engagement. All components were in place. We then took the knee through motion. Full range of motion in extension and flexion. Excellent stability throughout all planes, especially varus valgus mid flexion. Tourniquet was let down. Total time as mentioned above. Hemostasis maintained, irrigated thoroughly with normal saline. Closure of the capsule and tendon was with #1 Vicryl and oversewn with #1 Stratafix. Subcutaneous closed with 2-0 Monocryl buried deep and skin with #2 Stratafix. Dermabond glue over the skin. Debriefing performed confirming procedure, blood loss and all counts were correct and final. All team members agreed. Sterile silver impregnated dressing applied and then placed a UMU hose. She was extubated and taken to PACU stable. POSTOPERATIVE COURSE AND EVALUATION: I spoke with her friends per her wishes. Addressed questions to stated satisfaction. They do live together. She was thankful for my time and efforts. The patient was resting in PACU with stable vital signs, pain controlled, neurovascularly intact. Compartments soft and compressible. Negative Homans sign. It should be done so that patient was resting in PACU with stable vital signs, pain controlled, neurovascularly intact. No signs of DVT. Compartments soft and compressible. PACU films showed stable prosthesis in good position and alignment. No fracture or dislocation. Weightbear as tolerated, work. PT, OT, COVID protocol followed during the entirety of the patient care. <ELECTRONICALLY SIGNED> By: Quique Hayes DO 09/01/20 2208 1401 1519Quique Hayes DO /nt
== END 2020-08-31 18:50 | disposition home health service (06) | DRG 469 ==
LOC: M.PRE → M.ORTHSURG 12:16 → M.TBA 12:16 → M.ORTHSURG 12:16 → M.TBA 12:16 → M.PRE 12:49 → M.SUR 14:28 → EDSTATUS 14:28 → M.PRE 14:34 → M.ORTHSURG 18:17 → M.2W 08-26 10:56 → M.ORTHSURG 08-26 10:56 → M.2W 08-27 13:27
PROVIDERS: Internal Medicine; Orthopaedic Surgery; ADMIT Internal Medicine; ATTEND Internal Medicine
DX: M17.12 Unilateral primary osteoarthritis, left knee (principal); J96.21 Acute and chronic respiratory failure with hypoxia; J69.0 Pneumonitis due to inhalation of food and vomit; J96.02 Acute respiratory failure with hypercapnia; J98.11 Atelectasis; I13.0 Hypertensive heart and chronic kidney disease with heart failure and stage 1 through stage 4 chronic kidney disease, or unspecified chronic kidney disease; E66.2 Morbid (severe) obesity with alveolar hypoventilation; Z68.41 Body mass index [BMI] 40.0-44.9, adult; E78.5 Hyperlipidemia, unspecified; I50.9 Heart failure, unspecified; E78.00 Pure hypercholesterolemia, unspecified; K21.9 Gastro-esophageal reflux disease without esophagitis; N18.30 Chronic kidney disease, stage 3 unspecified; F41.1 Generalized anxiety disorder; F32.9 Major depressive disorder, single episode, unspecified; Z88.1 Allergy status to other antibiotic agents; Z88.0 Allergy status to penicillin; Z88.8 Allergy status to other drugs, medicaments and biological substances; Z79.899 Other long term (current) drug therapy; Z90.49 Acquired absence of other specified parts of digestive tract; Z90.710 Acquired absence of both cervix and uterus

== ENCOUNTER 2021-02-14 22:34 | Emergency (ER) | payer MEDICAID ==
[~2021-02-14] VITALS: Ht 170.2 cm; Wt 124.7 kg
[~2021-02-14 22:34] MED LIST changes: +ELIQUIS5 MG PO; +LEVOFLOXACIN500 MG PO; +LINEZOLID600 MG PO; +OXYCODONE HCL 55 MG PO
[2021-02-14 23:26] LABS: URINE BILIRUBIN NEGATIVE (Negative); URINE BLOOD NEGATIVE (Negative); URINE CLARITY CLEAR; URINE COLOR YELLOW; URINE GLUCOSE-RANDOM NEGATIVE (Negative); URINE KETONES NEGATIVE (Negative); URINE LEUKOCYTES-REFLEX NEGATIVE (Negative); URINE NITRITE-REFLEX NEGATIVE (Negative); URINE PROTEIN TRACE (Negative); URINE SPECIFIC GRAVITY 1.015 (1.005-1.030); URINE UROBILINOGEN 0.2 E.U./dl (0.2-1.0)
[2021-02-15 00:33] VITALS: BP 155/54
== END 2021-02-15 00:34 | disposition home or self-care (01) ==
LOC: M.ERS 22:34
PROVIDERS: Emergency Medicine
DX: K21.9 Gastro-esophageal reflux disease without esophagitis (principal); Z88.1 Allergy status to other antibiotic agents; Z88.0 Allergy status to penicillin; I11.0 Hypertensive heart disease with heart failure; I50.9 Heart failure, unspecified; E78.00 Pure hypercholesterolemia, unspecified; Z90.49 Acquired absence of other specified parts of digestive tract; Z98.51 Tubal ligation status; Z90.710 Acquired absence of both cervix and uterus

== ENCOUNTER 2021-02-26 17:32 | Inpatient (IN) | payer MEDICAID ==
[~2021-02-26] VITALS: Ht 170.2 cm; Wt 132.6 kg
[~2021-02-26 17:32] MED LIST changes: -LAMICTAL XR200 MG PO; +LAMICTAL200 MG PO
[2021-02-26 17:40] VITALS: BP 131/61
[2021-02-26 17:53] LABS: ABSOLUTE LYMPHOCYTES 1.8 thou/uL (0.8-5.3); ABSOLUTE MONOCYTES 0.6 thou/uL (0.0-1.2); ABSOLUTE NEUTROPHILS 4.8 thou/uL (1.6-8.1); BASOPHILS 0.6 %; EOSINOPHILS 0.3 %; HEMATOCRIT 33.5 % (37.0-47.0); HEMOGLOBIN 10.4 gm/dL (12.0-15.0); MCH 24.6 pg (26.0-34.0); MCV 79.3 fL (80.0-100.0); MONOCYTES 8.4 %; MPV 6.9 fl. (7.2-11.1); NUCLEATED RBCS 0 /100WBC; PLATELET COUNT* 351 thou/uL (150-400); POLYS 65.7 %; RBC 4.23 mil/uL (4.20-5.00); WBC 7.4 thou/uL (4.0-11.0)
[2021-02-26 17:59] LABS: CALCIUM 8.6 mg/dL (8.5-10.1); CREATININE 1.7 mg/dL (0.6-1.3); POTASSIUM 4.4 mmol/L (3.5-5.1)
[2021-02-26 18:02] LABS: BE 3.3 mmol/L (-2 to +3); pH 7.352 (7.340-7.450)
[2021-02-26 18:06] LABS: PO2 50.9 mmHg (75.0-100.0)
[2021-02-26 18:10] LABS: ALBUMIN 3.5 g/dL (3.4-5.0); TOTAL BILIRUBIN 0.3 mg/dL (<0.1-1.0); TOTAL PROTEIN 7.7 g/dL (6.4-8.2)
[2021-02-26 22:30] VITALS: BP 111/65
[2021-02-27] VITALS (9 sets, daily range): BP systolic 101–135; BP diastolic 51–64
[2021-02-27 08:59] LABS: CALCIUM 8.8 mg/dL (8.5-10.1); CREATININE 1.6 mg/dL (0.6-1.3); POTASSIUM 4.6 mmol/L (3.5-5.1)
[2021-02-27 09:02] LABS: MAGNESIUM 2.3 mg/dL (1.8-2.4); PHOSPHORUS* 3.8 mg/dL (2.5-4.9)
[2021-02-27] MEDS ORDERED: MIRAPEX0.5 MG PO (09:16)
--- NOTE | 2021-02-27 12:33 | EKG ---
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: JT : 1965 Requested By: Jesus Flores Order Number: [id number] MD: Jericho Pond Measurements Intervals [place] Rate: 68 P: 54 [place]: 195 QRS: 33 QRSD: 112 T: 25 QT: 412 QTc: 439 Interpretive Statements Sinus rhythm Probable left atrial enlargement Borderline intraventricular conduction delay Compared to ECG 06/22/2020 18:21:02 No significant changes Electronically Signed On 02-27-2021 12:32:52 CDT by Jericho Pond [email or web address] <ELECTRONICALLY SIGNED> By: Rehana Pond MD, FAC 02/27/21 1232 174 174 Rehana Pond MD, FAC /EPI
[2021-02-28 05:11] VITALS: BP 122/60
[2021-02-28 07:57] VITALS: BP 133/67
[2021-02-28 12:39] VITALS: BP 122/63
[2021-02-28 17:08] VITALS: BP 127/69
[2021-02-28 20:00] VITALS: BP 122/69
[2021-03-01 00:51] VITALS: BP 121/62
[2021-03-01 04:40] LABS: HEMATOCRIT 34.8 % (37.0-47.0); HEMOGLOBIN 10.6 gm/dL (12.0-15.0); MCH 24.4 pg (26.0-34.0); MCHC 30.6 g/dL (28.0-37.0); MCV 79.7 fL (80.0-100.0); MPV 7.3 fl. (7.2-11.1); RBC 4.36 mil/uL (4.20-5.00); RDW-CV 16.8 % (10.5-14.5); WBC 7.5 thou/uL (4.0-11.0)
[2021-03-01 04:58] LABS: CALCIUM 9.6 mg/dL (8.5-10.1); CREATININE 1.5 mg/dL (0.6-1.3); MAGNESIUM 2.7 mg/dL (1.8-2.4); POTASSIUM 4.9 mmol/L (3.5-5.1)
[2021-03-01 05:50] VITALS: BP 130/70
[2021-03-01 07:45] VITALS: BP 124/51
[2021-03-01 12:37] VITALS: BP 112/58
[2021-03-01 16:48] VITALS: BP 129/61
[2021-03-01 20:00] VITALS: BP 130/63
[2021-03-02 00:03] VITALS: BP 118/59
[2021-03-02 08:20] VITALS: BP 130/72
[2021-03-02] MEDS ORDERED: AZITHROMYCIN 2250 MG PO (09:29)
[2021-03-02] MEDS ORDERED: CEFDINIR300 MG PO (09:29)
[2021-03-02] MEDS ORDERED: PROAIR HFA8.5 GM INH (09:29)
[2021-03-02] MEDS ORDERED: PREDNISONE 10 M10 MG PO (09:29)
[2021-03-02 11:14] VITALS: BP 130/72
== END 2021-03-02 12:21 | disposition home health service (06) | DRG 177 ==
LOC: M.ERS 17:32 → M.TBA-ER 18:36 → M.2W 02-27 08:15 → M.ICU 02-27 08:30 → M.2W 02-27 19:29
PROVIDERS: Emergency Medicine; Internal Medicine; ADMIT Internal Medicine; ATTEND Internal Medicine
DX: J15.6 Pneumonia due to other Gram-negative bacteria (principal); J96.01 Acute respiratory failure with hypoxia; I50.32 Chronic diastolic (congestive) heart failure; I13.0 Hypertensive heart and chronic kidney disease with heart failure and stage 1 through stage 4 chronic kidney disease, or unspecified chronic kidney disease; Z68.42 Body mass index [BMI] 45.0-49.9, adult; E78.00 Pure hypercholesterolemia, unspecified; K21.9 Gastro-esophageal reflux disease without esophagitis; F32.9 Major depressive disorder, single episode, unspecified; Z20.822 Contact with and (suspected) exposure to COVID-19; Z96.653 Presence of artificial knee joint, bilateral; F17.210 Nicotine dependence, cigarettes, uncomplicated; N18.30 Chronic kidney disease, stage 3 unspecified; E66.01 Morbid (severe) obesity due to excess calories; G62.9 Polyneuropathy, unspecified; R73.03 Prediabetes; F41.1 Generalized anxiety disorder; K27.9 Peptic ulcer, site unspecified, unspecified as acute or chronic, without hemorrhage or perforation; Z90.49 Acquired absence of other specified parts of digestive tract; Z90.710 Acquired absence of both cervix and uterus; Z88.1 Allergy status to other antibiotic agents; Z88.0 Allergy status to penicillin; Z88.8 Allergy status to other drugs, medicaments and biological substances

== ENCOUNTER 2021-03-24 15:31 | Inpatient (IN) | payer OTHER, MEDICAID ==
[~2021-03-24] VITALS: Ht 170.2 cm; Wt 129.2 kg
[~2021-03-24 15:31] MED LIST changes: +AZITHROMYCIN 2250 MG PO; +CEFDINIR300 MG PO; +PREDNISONE 10 M10 MG PO; +PROAIR HFA8.5 GM INH
[2021-03-24 15:45] VITALS: BP 100/64
[2021-03-24] MEDS ORDERED: LAMICTAL 25 MG25 MG PO (15:48)
[2021-03-24 16:23] LABS: ABSOLUTE BASOPHILS 0.1 thou/uL (0.0-0.2); ABSOLUTE EOSINOPHILS 0.3 thou/uL (0.0-0.7); ABSOLUTE LYMPHOCYTES 1.9 thou/uL (0.8-5.3); ABSOLUTE MONOCYTES 0.4 thou/uL (0.0-1.2); ABSOLUTE NEUTROPHILS 3.5 thou/uL (1.6-8.1); BASOPHILS 0.9 %; EOSINOPHILS 4.4 %; HEMATOCRIT 35.7 % (37.0-47.0); HEMOGLOBIN 11.2 gm/dL (12.0-15.0); LYMPHOCYTES 31.3 %; MCH 25.4 pg (26.0-34.0); MCHC 31.2 g/dL (28.0-37.0); MCV 81.3 fL (80.0-100.0); MONOCYTES 6.3 %; MPV 6.8 fl. (7.2-11.1); NUCLEATED RBCS 0 /100WBC; PLATELET COUNT* 313 thou/uL (150-400); POLYS 57.1 %; RDW-CV 18.3 % (10.5-14.5); WBC 6.1 thou/uL (4.0-11.0)
[2021-03-24 16:25] LABS: URINE BILIRUBIN NEGATIVE (Negative); URINE BLOOD NEGATIVE (Negative); URINE CLARITY CLEAR; URINE COLOR YELLOW; URINE GLUCOSE-RANDOM NEGATIVE (Negative); URINE KETONES NEGATIVE (Negative); URINE LEUKOCYTES-REFLEX NEGATIVE (Negative); URINE NITRITE-REFLEX NEGATIVE (Negative); URINE PROTEIN TRACE (Negative); URINE UROBILINOGEN 0.2 E.U./dl (0.2-1.0)
[2021-03-24 16:28] LABS: CREATININE 2.6 mg/dL (0.6-1.3); POTASSIUM 4.5 mmol/L (3.5-5.1)
[2021-03-24 16:38] LABS: ALBUMIN 3.5 g/dL (3.4-5.0); TOTAL BILIRUBIN 0.4 mg/dL (<0.1-1.0); TOTAL PROTEIN 7.4 g/dL (6.4-8.2)
[2021-03-24 20:02] VITALS: BP 99/60
[2021-03-24 20:30] VITALS: BP 97/53
[2021-03-24] MEDS ORDERED: NORCO5 PO (22:14)
[2021-03-24] MEDS ORDERED: MIRAPEX 0.250.25 M1 PO (22:18)
[2021-03-25] VITALS: BP 98/55
[2021-03-25 04:00] VITALS: BP 101/51
--- NOTE | 2021-03-25 05:29 | NUR ---
REPORT RECIEVED FROM ER. PT ORIENTED TO ROOM, CALL LIGHT, SHOWN, FALL AGREEMENT WENT OVER, PT STATED UNDERSTANDING. FALL PRECAUTIONS IN PLACE. IV PATENT, FLUIDS INFUSING. PT REPORTED PAIN, DR NOTIFIED, ORDERS RECIEVED. PT ABLE TO MAKE NEEDS KNOWN. WILL CONTINUE WITH PLAN OF CARE.
[2021-03-25 08:00] VITALS: BP 106/46
[2021-03-25 08:14] LABS: CALCIUM 8.3 mg/dL (8.5-10.1); CREATININE 1.9 mg/dL (0.6-1.3); POTASSIUM 4.5 mmol/L (3.5-5.1)
--- NOTE | 2021-03-25 12:24 | NUR ---
Nutrition: Pt admitted with UTI, ARF. Seen for nursing risk. Pt stated she has lost about 15# in past week d/t nausea and unable to eat 2/2 not feeling well. She said her appetite and intake are better now. Regular diet ordered. Usual wt ~293#, current wt 284#. H/o GERD, CHF. Albumin 3.5. No other nutrition interventions at this time. GOALS: continue eating well, >75% of meals. Mild risk.
--- NOTE | 2021-03-25 13:11 | 2DMMODE ---
[place] [address] 2 D/M-MODE ECHOCARDIOGRAM Name: RODY CHANDRA Room: [address] IN .R.#: [id number] Admission: 03/24/21 Attend Phys: Khai Zimmer Discharge: Date of : 67 Date of Service: 03/25/21 1311 Report #: [id number] THIS REPORT FOR: cc: Maggi Hughes Stefany RNP Holkins, John M. MD [facility] ~ APPROVED REPORT Study performed: 03/25/2021 10:35:53 EXAM: Comprehensive 2D, Doppler, and color-flow Echocardiogram BSA: 2.35 HR: 58 bpm BP: 101/51 mmHg Other Information Study Quality: Good Indications Congestive Heart Failure Dyspnea 2D Dimensions IVSd: 13.69 (7-11mm) LVOT Diam: 19.43 (18-24mm) LVDd: 46.84 mm PWd: 10.90 (7-11mm) Ascending Ao: 39.41 (22-36mm) LVDs: 37.00 (25-40mm) Aortic Root: 32.48 mm Volumes Left Atrial Volume (Systole) LA ESV Index: 25.30 mL/m2 Aortic Valve AoV Peak Angel.: 1.85 m/s AO Peak Gr.: 13.62 mmHg LVOT Max P.55 mmHg AO Mean Gr.: 7.69 mmHg LVOT Mean P.65 mmHg LVOT Max V: 1.18 m/s AO V2 VTI: 45.55 cm LVOT Mean V: 0.74 m/s PAUL (VTI): 1.90 cm2 LVOT V1 VTI: 29.21 cm Mitral Valve E/A Ratio: 0.74 [place] [address] 2 D/M-MODE ECHOCARDIOGRAM Name: RODY CHANDRA Room: [address]#: [id number] Admission: 03/24/21 Attend Phys: Khai Zimmer Discharge: Date of : 67 Date of Service: 03/25/21 1311 Report #: [id number] MV Decel. Time: 298.36 ms MV E Max Angel.: 0.84 m/s MV PHT: 86.52 ms MVA (PHT): 2.54 cm2 TDI E/Lateral E': 6.00 E/Medial E': 8.40 Medial E' Angel.: 0.10 m/s Lateral E' Angel.: 0.14 m/s Pulmonary Valve PV Peak Angel.: 1.06 m/s PV Peak Gr.: 4.51 mmHg Tricuspid Valve RAP Estimate: 20.00 mmHg TR Peak Gr.: 33.28 mmHg RVSP: 53.28 mmHg PA Pressure: 53.28 mmHg Left Ventricle The left ventricle is normal size. There is normal LV segmental wall motion. There is normal left ventricular wall thickness. Left ventricular systolic function is normal. The left ventricular ejection fraction is within the normal range. LVEF is 55-60%. Grade I - abnormal relaxation pattern. Right Ventricle The right ventricle is normal size. The right ventricular systolic function is normal. Atria The left atrium size is normal. The right atrium size is normal. Aortic Valve Mild aortic valve sclerosis. Mild aortic regurgitation. There is no aortic valvular stenosis. Mitral Valve The mitral valve is normal in structure. Mild mitral regurgitation. No evidence of mitral valve stenosis. Tricuspid Valve The tricuspid valve is normal in structure. Trace tricuspid regurgitation[place] [address] 2 D/M-MODE ECHOCARDIOGRAM Name: ALEXALICIARODY Room: [address]#: [id number] Admission: 03/24/21 Attend Phys: Khai Zimmer Discharge: Date of : 67 Date of Service: 03/25/21 1311 Report #: [id number] The pulmonary valve is normal in structure. Trace pulmonic regurgitation. Great Vessels The aortic root is normal in size. IVC is normal in size and collapses >50% with inspiration. Pericardium There is no pericardial effusion. <Conclusion> The left ventricle is normal size. There is normal left ventricular wall thickness. Left ventricular systolic function is normal. The left ventricular ejection fraction is within the normal range. LVEF is 55-60%. Grade I - abnormal relaxation pattern. The right ventricle is normal size. The left atrium size is normal. Mild aortic valve sclerosis. Mild aortic regurgitation. There is no aortic valvular stenosis. The mitral valve is normal in structure. Mild mitral regurgitation. The tricuspid valve is normal in structure. IVC is normal in size and collapses >50% with inspiration. There is no pericardial effusion. There is normal LV segmental wall motion. <ELECTRONICALLY SIGNED> By: Bharathi De Guzman MD, FACC 03/25/211310 10 10 Bharathi De Guzman MD, FACC /INF
[2021-03-25 13:15] VITALS: BP 105/56
--- NOTE | 2021-03-25 13:50 | NUR ---
Pt is A&O. Resides at home with a friend, known to this CM from previous hospital stay. Pt's friend is her caregiver through [facility] for 21hrs/week. No DME. Hx of [facility] and [facility]. No hx of SNF. Therapies ordered, Pt remained in the bed for many days, not feeling well, prior to coming to the hospital. Anticipate dc in a few days. Following.
--- NOTE | 2021-03-25 15:58 | NUR ---
Took report from day shift nurse, went and assessed patient, agree with previous nurse's assessment. Patient resting in room with IV fluids on, stopped IV fluids per dr order. Patient in no distress. Continue plan of care.
[2021-03-25 16:00] VITALS: BP 110/54
--- NOTE | 2021-03-25 16:42 | EKG ---
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 : 1965 Requested By: Julia Curtis Order Number: [id number] MD: Bharathi De Guzman Measurements Intervals [place] Rate: 72 P: 40 IA: 249 QRS: 23 QRSD: 104 T: 17 QT: 443 QTc: 485 Interpretive Statements Sinus rhythm Prolonged IA interval Consider left atrial enlargement Borderline T wave abnormalities Borderline prolonged QT interval Compared to ECG 02/26/2021 17:41:19 First degree AV block now present T-wave abnormality now present Electronically Signed On 03-25-2021 16:42:32 CDT by Bharathi De Guzman [email or web address] <ELECTRONICALLY SIGNED> By: Bharathi De Guzman MD, [facility] 03/25/21 1642 1553 1553 Bharathi De Guzman MD, [facility] /EPI
[2021-03-25 20:00] VITALS: BP 114/51
[2021-03-26] VITALS: BP 97/48
--- NOTE | 2021-03-26 02:31 | NUR ---
PT ALERT ORIENTED. O2 AT 1 LITER NC. HYDROCODONE GIVEN FOR PAIN 05/21. PHENERGAN GIVEN FOR NAUSIA. INITAL O2 SAT 86% ON RA. O2 AT 2 LITERS. O2 SAT 97% TELEMETRT SHOWS SR,
[2021-03-26 04:00] VITALS: BP 105/53
[2021-03-26 04:35] LABS: CALCIUM 8.8 mg/dL (8.5-10.1); CREATININE 1.8 mg/dL (0.6-1.3); POTASSIUM 4.9 mmol/L (3.5-5.1)
[2021-03-26 08:00] VITALS: BP 109/55
[2021-03-26] MEDS ORDERED: ZOFRAN ODT4 MG PO (10:16)
[2021-03-26 13:07] VITALS: BP 109/55
--- NOTE | 2021-03-26 14:08 | NUR ---
PT. AOX4, VSS, DENIES PAIN OR DISCOMFORT. CALL LIGHT AND PERSONAL BELONGINGS PLACED WITHIN REACH. DC ORDERS REEIVED, FLUIDS AND PIV DCED. DC PACKET REPOVIDED, DIET, ACTIVITY, MEDS AND APPOINTMENTDETAILS PROVIDED, PT. VERBALIZED UNDERSTANDING. PT. LEFT BY WHEELCHAIR WITH FRIEND, IN STABLE CONDITION.
--- NOTE | 2021-03-26 16:44 | NUR ---
PT. DISCHARGED PRIOR TO O.T. EVAL. PLEASE ORDER FURTHER O.T. SERVICES IF NEEDED.
== END 2021-03-26 13:42 | disposition home or self-care (01) | DRG 682 ==
LOC: M.ERS 15:31 → M.TBA-ER 17:18 → M.2W 19:54 → M.TBA-ER 19:54 → M.2W 21:01
PROVIDERS: Physician Assistant; ADMIT Internal Medicine; ATTEND Internal Medicine
DX: N17.0 Acute kidney failure with tubular necrosis (principal); I50.43 Acute on chronic combined systolic (congestive) and diastolic (congestive) heart failure; J96.01 Acute respiratory failure with hypoxia; I13.0 Hypertensive heart and chronic kidney disease with heart failure and stage 1 through stage 4 chronic kidney disease, or unspecified chronic kidney disease; Z68.41 Body mass index [BMI] 40.0-44.9, adult; E78.00 Pure hypercholesterolemia, unspecified; I95.1 Orthostatic hypotension; F41.9 Anxiety disorder, unspecified; D64.9 Anemia, unspecified; F17.200 Nicotine dependence, unspecified, uncomplicated; E78.5 Hyperlipidemia, unspecified; R73.03 Prediabetes; F31.9 Bipolar disorder, unspecified; N18.32 Chronic kidney disease, stage 3b; E66.01 Morbid (severe) obesity due to excess calories; Z20.822 Contact with and (suspected) exposure to COVID-19; K21.9 Gastro-esophageal reflux disease without esophagitis; Z90.710 Acquired absence of both cervix and uterus; Z79.899 Other long term (current) drug therapy; Z88.1 Allergy status to other antibiotic agents; Z88.0 Allergy status to penicillin; Z88.8 Allergy status to other drugs, medicaments and biological substances; Z90.49 Acquired absence of other specified parts of digestive tract

== ENCOUNTER 2021-05-22 10:11 | Emergency (ER) | payer OTHER, MEDICAID ==
[~2021-05-22] VITALS: Ht 170.2 cm; Wt 131.5 kg
[~2021-05-22 10:11] MED LIST changes: +LAMICTAL 25 MG25 MG PO; +MIRAPEX 0.250.25 M1 PO; +NORCO5 PO; +ZOFRAN ODT4 MG PO
[2021-05-22 11:55] VITALS: BP 110/63
== END 2021-05-22 11:55 | disposition home or self-care (01) ==
LOC: M.ERS 10:11
DX: M25.561 Pain in right knee (principal); Z79.899 Other long term (current) drug therapy; I10 Essential (primary) hypertension; E78.00 Pure hypercholesterolemia, unspecified; I50.9 Heart failure, unspecified; I12.9 Hypertensive chronic kidney disease with stage 1 through stage 4 chronic kidney disease, or unspecified chronic kidney disease; E11.22 Type 2 diabetes mellitus with diabetic chronic kidney disease; N18.9 Chronic kidney disease, unspecified; Z90.49 Acquired absence of other specified parts of digestive tract; Z98.51 Tubal ligation status; W18.40XA Slipping, tripping and stumbling without falling, unspecified, initial encounter; Y93.89 Activity, other specified; Y92.89 Other specified places as the place of occurrence of the external cause; Y99.8 Other external cause status

== ENCOUNTER 2021-06-10 10:28 | Inpatient (IN) | payer OTHER, MEDICAID ==
[~2021-06-10] VITALS: Ht 170.2 cm; Wt 129.6 kg
[2021-06-10 10:35] VITALS: BP 113/44
[2021-06-10 11:54] LABS: ABSOLUTE EOSINOPHILS 0.1 thou/uL (0.0-0.7); ABSOLUTE LYMPHOCYTES 1.5 thou/uL (0.8-5.3); ABSOLUTE MONOCYTES 0.8 thou/uL (0.0-1.2); ABSOLUTE NEUTROPHILS 3.3 thou/uL (1.6-8.1); BASOPHILS 0.5 %; EOSINOPHILS 0.9 %; HEMATOCRIT 36.9 % (37.0-47.0); HEMOGLOBIN 11.7 gm/dL (12.0-15.0); LYMPHOCYTES 27.2 %; MCH 25.5 pg (26.0-34.0); MCHC 31.8 g/dL (28.0-37.0); MCV 80.3 fL (80.0-100.0); MONOCYTES 13.6 %; MPV 7.9 fl. (7.2-11.1); NUCLEATED RBCS 0 /100WBC; PLATELET COUNT* 254 thou/uL (150-400); POLYS 57.8 %; RDW-CV 19.3 % (10.5-14.5); WBC 5.7 thou/uL (4.0-11.0)
[2021-06-10 12:05] LABS: CALCIUM 8.3 mg/dL (8.5-10.1); CREATININE 1.8 mg/dL (0.6-1.3)
[2021-06-10 12:17] LABS: TOTAL BILIRUBIN 0.3 mg/dL (<0.1-1.0); TOTAL PROTEIN 6.2 g/dL (6.4-8.2)
[2021-06-10 12:19] LABS: POTASSIUM 5.3 mmol/L (3.5-5.1)
--- NOTE | 2021-06-10 15:19 | EKG ---
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 : 1965 Requested By: Jagdeep Taylor Order Number: [id number] MD: Bharathi De Guzman Measurements Intervals [place] Rate: 79 P: 48 HI: 158 QRS: 32 QRSD: 111 T: 50 QT: 380 QTc: 436 Interpretive Statements Sinus rhythm Probable left atrial enlargement Minimal ST depression Baseline wander in lead(s) V1,V2,V4,V6 Compared to ECG 03/24/2021 15:53:53 No significant interval change Electronically Signed On 06-10-2021 15:19:41 CDT by Bharathi De Guzman [email or web address] <ELECTRONICALLY SIGNED> By: Bharathi De Guzman MD, [facility] 06/10/21 1519 1142 1142 Bharathi De Guzman MD, [facility] /EPI
[2021-06-10 16:00] VITALS: BP 102/66
[2021-06-10 16:34] VITALS: BP 112/72
[2021-06-10 20:00] VITALS: BP 123/58
[2021-06-11 00:24] VITALS: BP 124/71
[2021-06-11 04:22] VITALS: BP 104/54
[2021-06-11 08:00] VITALS: BP 105/63
[2021-06-11 12:37] VITALS: BP 112/64
[2021-06-11 18:00] VITALS: BP 128/59
[2021-06-11 20:00] VITALS: BP 127/66
[2021-06-12] VITALS: BP 130/70
[2021-06-12 08:00] VITALS: BP 133/71
[2021-06-12 09:16] LABS: HEMATOCRIT 37.7 % (37.0-47.0); HEMOGLOBIN 11.9 gm/dL (12.0-15.0); MCH 25.3 pg (26.0-34.0); MCHC 31.6 g/dL (28.0-37.0); MCV 80.2 fL (80.0-100.0); MPV 7.7 fl. (7.2-11.1); RBC 4.7 mil/uL (4.20-5.00); RDW-CV 19.6 % (10.5-14.5); WBC 8.3 thou/uL (4.0-11.0)
[2021-06-12 09:28] LABS: CREATININE 1.5 mg/dL (0.6-1.3); POTASSIUM 4.3 mmol/L (3.5-5.1)
[2021-06-12 12:00] VITALS: BP 111/71
[2021-06-12 16:00] VITALS: BP 114/62
[2021-06-12 20:00] VITALS: BP 131/71
[2021-06-13 00:24] VITALS: BP 134/66
[2021-06-13 05:43] VITALS: BP 129/79
[2021-06-13 08:28] VITALS: BP 136/71
[2021-06-13] MEDS ORDERED: DECADRON6 MG PO (11:24)
[2021-06-13 12:33] VITALS: BP 132/72
[2021-06-13 17:40] VITALS: BP 137/74
[2021-06-13 20:00] VITALS: BP 138/70
[2021-06-14 00:24] VITALS: BP 142/70
[2021-06-14 05:44] VITALS: BP 150/74
[2021-06-14 08:12] VITALS: BP 134/73
[2021-06-14 12:00] VITALS: BP 127/68
[2021-06-14 14:11] VITALS: BP 127/68
== END 2021-06-14 16:24 | disposition home or self-care (01) | DRG 177 ==
LOC: M.ERS 10:28 → M.ORTHSURG 12:49 → M.TBA-ER 12:49 → M.ORTHSURG 18:18
PROVIDERS: Emergency Medicine Emergency Medical Services; Family Medicine; ADMIT Internal Medicine; ATTEND Internal Medicine
PROC: 5A0935A Assistance with Respiratory Ventilation, Less than 24 Consecutive Hours, High Flow/Velocity Cannula (ICD-10-PCS; principal; 2021-06-11)
PROC: 5A0935A Assistance with Respiratory Ventilation, Less than 24 Consecutive Hours, High Flow/Velocity Cannula (ICD-10-PCS; 2021-06-13)
DX: U07.1 COVID-19 (principal); J96.01 Acute respiratory failure with hypoxia; N17.0 Acute kidney failure with tubular necrosis; J12.82 Pneumonia due to coronavirus disease 2019; I13.0 Hypertensive heart and chronic kidney disease with heart failure and stage 1 through stage 4 chronic kidney disease, or unspecified chronic kidney disease; Z68.41 Body mass index [BMI] 40.0-44.9, adult; E78.00 Pure hypercholesterolemia, unspecified; I50.9 Heart failure, unspecified; K21.9 Gastro-esophageal reflux disease without esophagitis; F41.9 Anxiety disorder, unspecified; N18.30 Chronic kidney disease, stage 3 unspecified; F31.9 Bipolar disorder, unspecified; J45.20 Mild intermittent asthma, uncomplicated; E66.9 Obesity, unspecified; E87.5 Hyperkalemia; Z90.49 Acquired absence of other specified parts of digestive tract; Z79.51 Long term (current) use of inhaled steroids; Z79.899 Other long term (current) drug therapy; Z88.0 Allergy status to penicillin; Z88.1 Allergy status to other antibiotic agents